=== PATIENT | male | born 1960 | race Caucasian/White ===

== ENCOUNTER 2020-09-27 18:33 | Emergency (ER) | payer SELFPAY ==
[~2020-09-27] VITALS: Ht 182.9 cm; Wt 90.7 kg
[2020-09-27] MEDS ORDERED: HYDCHL25 PO (18:45)
[2020-09-27] MEDS ORDERED: LISI10 PO (18:45)
[2020-09-27 20:22] LABS: BASOPHILS ABSOLUTE AUTO 0.04 K/mm3 (0.00-0.23); BASOPHILS PERCENT AUTO 0 % (0-2); EOSINOPHILS PERCENT AUTO 0 % (0-6); Hematocrit 36.2 % (37.0-53.0); Hemoglobin 11.9 g/dL (13.5-17.5); IMMATURE GRAN ABSOLUTE AUTO 0.24 K/mm3 (0.00-0.10); IMMATURE GRAN PERCENT AUTO 2 % (0-1); LYMPHOCYTES ABSOLUTE AUTO 1.35 K/mm3 (0.84-5.20); LYMPHOCYTES PERCENT AUTO 9 % (21-46); MONOCYTES PERCENT AUTO 9 % (4-13); Mean Corpuscular HGB 32.4 pg (26.0-34.0); Mean Corpuscular HGB Conc 32.9 g/dL (31.5-36.5); Mean Corpuscular Volume 99 fL (80-100); NEUTROPHILS ABSOLUTE AUTO 11.97 K/mm3 (1.96-9.15); NEUTROPHILS PERCENT AUTO 80 % (41-73); Platelet Count 121 K/mm3 (150-400); RDW Coefficient Variation 16.2 % (11.7-14.2); RDW Standard Deviation 57.2 fL (35.1-46.3); Red Blood Cell Count 3.67 M/mm3 (4.30-5.90)
[2020-09-27 20:39] LABS: Albumin, Blood 3.1 g/dL (3.4-5.0); Albumin/Globulin Ratio 0.8 (0.8-1.8); Bilirubin, Total 3.8 mg/dL (0.1-1.0); Bun/Creatinine Ratio 23.1 (12.0-20.0); Calcium, Blood 9.6 mg/dL (8.5-10.1); Creatinine, Blood 1.69 mg/dL (0.60-1.20); Globulin, Blood 3.7 g/dL (2.2-4.0); Total Protein, Blood 6.8 g/dL (6.4-8.2)
[2020-09-27] MEDS ORDERED: LOPE2C PO (22:18)
[2020-09-27] MEDS ORDERED: ONDA4ODT MM (22:18)
== END 2020-09-27 22:35 | disposition home or self-care (01) ==
LOC: ER 18:33
PROVIDERS: Emergency Medicine
DX: K75.9 Inflammatory liver disease, unspecified (principal); R19.7 Diarrhea, unspecified; F17.200 Nicotine dependence, unspecified, uncomplicated; Z79.899 Other long term (current) drug therapy
CPT/HCPCS: 74177; 80053; 83690; 85025; 93005; 93010; 96361; 96374-59; 96375; 99284-25; J2270; J2405; J7030; Q9967

== ENCOUNTER 2020-09-29 23:20 | Inpatient (IN) | payer OTHER ==
[~2020-09-29] VITALS: Ht 182.9 cm; Wt 94.3 kg
[~2020-09-29 23:20] MED LIST: HYDCHL25 PO; LISI10 PO; LOPE2C PO; ONDA4ODT MM
[2020-09-29 23:51] LABS: BASOPHILS ABSOLUTE AUTO 0.03 K/mm3 (0.00-0.23); BASOPHILS PERCENT AUTO 0 % (0-2); EOSINOPHILS ABSOLUTE AUTO 0.03 K/mm3 (0.00-0.68); EOSINOPHILS PERCENT AUTO 0 % (0-6); Hematocrit 34.7 % (37.0-53.0); Hemoglobin 11.7 g/dL (13.5-17.5); IMMATURE GRAN PERCENT AUTO 1 % (0-1); LYMPHOCYTES PERCENT AUTO 12 % (21-46); MONOCYTES PERCENT AUTO 12 % (4-13); Mean Corpuscular HGB 32.2 pg (26.0-34.0); Mean Corpuscular HGB Conc 33.7 g/dL (31.5-36.5); Mean Corpuscular Volume 96 fL (80-100); Mean Platelet Volume 11.1 fL (9.1-12.4); NEUTROPHILS ABSOLUTE AUTO 13.76 K/mm3 (1.96-9.15); NEUTROPHILS PERCENT AUTO 74 % (41-73); Platelet Count 152 K/mm3 (150-400); RDW Coefficient Variation 15.9 % (11.7-14.2); RDW Standard Deviation 55.7 fL (35.1-46.3); Red Blood Cell Count 3.63 M/mm3 (4.30-5.90); White Blood Cell Count 18.52 K/mm3 (4.00-11.30)
[2020-09-30 00:10] LABS: Albumin, Blood 2.8 g/dL (3.4-5.0); Albumin/Globulin Ratio 0.8 (0.8-1.8); Bilirubin, Total 1.9 mg/dL (0.1-1.0); Bun/Creatinine Ratio 49.7 (12.0-20.0); Calcium, Blood 8.8 mg/dL (8.5-10.1); Creatinine, Blood 1.57 mg/dL (0.60-1.20); Globulin, Blood 3.7 g/dL (2.2-4.0); Potassium, Blood 4.1 mmol/L (3.5-5.5); Total Protein, Blood 6.5 g/dL (6.4-8.2); Troponin I 0.089 ng/mL (0.000-0.040)
--- NOTE | 2020-09-30 00:15 | NUR ---
REPORT RECEIVED FROM PABLO LEAVE MANAGER AT 2345. PT TRANSFERRED TO MEDICAL FLOOR VIA BED, TRANSFERRED TO NEW BED WITH MINIMAL ASSIST. ALL BELONGINGS WITH PT. ON ASSESSMENT, PT REPORTS DIFFUSE LOWER ABD PAIN ON PALPATION, RADIATING TO LOW BACK. NO OTHER ACUTE CHANGES NOTED FROM SHIFT ASSESSMENT. PT APPEARS COMFORTABLE. ORIENTED TO ROOM/UNIT. BROUGHT WARM BLANKET. PT ATTEMPTING TO GO TO SLEEP NOW. NO FURTHER NEEDS ASSESSED AT THIS TIME. CALL LIGHT AND POSSESSIONS IN REACH, BED IN LOW POSITION WITH ALARMS ON. CONTINUE TO MONITOR.
[2020-09-30 01:31] LABS: Source, Urine Clean Catch
[2020-09-30 01:47] LABS: U Amphetamine Screen DETECTED; U Barbituate Screen Not Detected; U Benzodiazapine Screen Not Detected; U Buprenorphine Screen Not Detected; U Cannabinoids Screen Not Detected; U Cocaine Screen Not Detected; U Methadone Screen Not Detected; U Methamphetamine Screen DETECTED; U Opiates Screen DETECTED; U Oxycodone Screen Not Detected; U Phencyclidine Screen Not Detected; U Propoxyphene Screen Not Detected
[2020-09-30 01:50] LABS: Appearance, Urine Clear (Clear); Bacteria Rare /hpf; Bilirubin, Urine Neg (Neg); Blood, Urine 3+ (Neg); Color, Urine Yellow (P-Yellow); Glucose Qualitative, Urine Neg (Neg); Ketones, Urine 1+ (Neg); Leukocyte Esterase, Urine Neg (Neg); Nitrite, Urine Neg (Neg); Protein, Urine Neg (Neg); Specific Gravity, Urine 1.015 (1.003-1.022); Squamous Epithelial Cells Not Seen /hpf (Few); Urobilinogen, Urine 1+ (Normal); White Blood Cells, Urine Not Seen /hpf (0-5)
[2020-09-30 01:54] LABS: Creatine Kinase MB 78.3 ng/mL (0.0-3.6); Creatine Kinase MB Index 3.4 (0.0-4.0)
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
[2020-09-30 08:17] LABS: Hematocrit 29.6 % (37.0-53.0); Hemoglobin 9.7 g/dL (13.5-17.5); Mean Corpuscular HGB 32.1 pg (26.0-34.0); Mean Corpuscular HGB Conc 32.8 g/dL (31.5-36.5); Mean Corpuscular Volume 98 fL (80-100); Mean Platelet Volume 11.5 fL (9.1-12.4); Platelet Count 96 K/mm3 (150-400); RDW Coefficient Variation 16.3 % (11.7-14.2); RDW Standard Deviation 57.3 fL (35.1-46.3); Red Blood Cell Count 3.02 M/mm3 (4.30-5.90); White Blood Cell Count 11.99 K/mm3 (4.00-11.30)
[2020-09-30 08:33] LABS: Anion Gap 9 mmol/L (6-16); Blood Urea Nitrogen 68 mg/dL (8-24); Bun/Creatinine Ratio 56.2 (12.0-20.0); CO2, Blood 21 mmol/L (21-32); Calcium, Blood 8.2 mg/dL (8.5-10.1); Chloride, Blood 112 mmol/L (98-108); Creatinine, Blood 1.21 mg/dL (0.60-1.20); Glomerular Filtration Rate >60 (60-); Glucose, Blood 80 mg/dL (70-99); Potassium, Blood 3.7 mmol/L (3.5-5.5); Sodium, Blood 142 mmol/L (136-145)
--- NOTE | 2020-09-30 17:29 | NUR ---
SHIFT SUMMARY PT IS ALERT AND ORIENTEDx4, CALM AND COOPERATIVE. THIS AFTERNOON PT REPORTED THAT HE COULDN'T MOVE HIS LEGS, BUT PT WOULD BE SEEN MOVING HIS LEGS IN BED INDEPENDANTLY. PT WAS ABLE TO AMBULATE WITH 1 PERSON ASSIST AND WALKER TO RESTROOM THIS MORNING. PT HAD SMALL FORMED BM THIS MORNING, ISOLATION PRECAUTIONS D/C'D BY PROVIDER FOR R/O C-DIFF. PT ABLE TO USE URINAL INDEPENDANTLY. PT ALSO C/O PAIN 10/10, WITH VARYING LOCATION COMPLAINTS. PRN TYLENOL OFFERED MULTIPLE TIMES AND PT WOULD DECLINE. PT WOULD LATER EASILY FALL ASLEEP. VITALS HAVE BEEN STABLE. PT STATUS WAS CHANGED TO MEDICAL WITHOUT TELE TODAY.
--- NOTE | 2020-09-30 23:50 | NUR ---
UPDATE PT ALERT AND ORIENTED. VS STABLE. O2 SATS REMAIN ABOVE 90% ON RA. BP STABLE. PT COMPLAINS OF ACHES "ALL OVER" BUT DENIES A NEED FOR MEDICATION. PT ABLE TO REPOSITION HIMSELF IN BED. PT VOIDING USING THE URINAL AT BEDSIDE. REPORT GIVEN TO MEDICAL FLOOR RNSHAINA. PT TAKEN UP BY BED.
--- NOTE | 2020-10-01 00:15 | NUR ---
REPORT RECEIVED FROM PABLOTAMPING MACHINE OPERATOR AT 8809. PT TRANSFERRED TO MEDICAL FLOOR VIA BED, TRANSFERRED TO NEW BED C MINIMAL ASSIST. ALL BELONGINGS C PT. ON ASSESSMENT, PT REPORTS DIFFUSE LOWER ABD PAIN ON PALPATION, RADIATING TO LOW BACK. NO OTHER ACUTE CHANGES NOTED FROM SHIFT ASSESSMENT. PT APPEARS COMFORTABLE. ORIENTED TO ROOM/UNIT. BROUGHT WARM BLANKET. PT ATTEMPTING TO GO TO SLEEP NOW. NO FURTHER NEEDS ASSESSED AT THIS TIME. CALL LIGHT AND POSSESSIONS IN REACH, BED IN LOW POSITION WITH ALARMS ON. CONTINUE TO MONITOR.
[2020-10-01 01:47] LABS: Vancomycin, Trough 15.6 ug/mL (5.0-10.0)
[2020-10-01 01:50] LABS: Hematocrit 30.1 % (37.0-53.0); Hemoglobin 10.2 g/dL (13.5-17.5); Mean Corpuscular HGB 32.7 pg (26.0-34.0); Mean Corpuscular HGB Conc 33.9 g/dL (31.5-36.5); Mean Corpuscular Volume 97 fL (80-100); Mean Platelet Volume 11.3 fL (9.1-12.4); Platelet Count 101 K/mm3 (150-400); RDW Coefficient Variation 16.5 % (11.7-14.2); RDW Standard Deviation 56.8 fL (35.1-46.3); Red Blood Cell Count 3.12 M/mm3 (4.30-5.90); White Blood Cell Count 9.34 K/mm3 (4.00-11.30)
[2020-10-01 01:51] LABS: Alanine Aminotransfer (ALT/SGP 165 U/L (12-78); Albumin, Blood 2.2 g/dL (3.4-5.0); Albumin/Globulin Ratio 0.7 (0.8-1.8); Alk Phos 79 U/L (50-136); Anion Gap 6 mmol/L (6-16); Aspartate Aminotrans (AST/SGOT 178 U/L (12-37); Bilirubin, Total 1.6 mg/dL (0.1-1.0); Blood Urea Nitrogen 43 mg/dL (8-24); Bun/Creatinine Ratio 43.6 (12.0-20.0); CO2, Blood 24 mmol/L (21-32); Calcium, Blood 8.1 mg/dL (8.5-10.1); Chloride, Blood 111 mmol/L (98-108); Creatinine, Blood 0.99 mg/dL (0.60-1.20); Ferritin, Serum 960 ng/mL (26-388); Globulin, Blood 3.1 g/dL (2.2-4.0); Glomerular Filtration Rate >60 (60-); Glucose, Blood 99 mg/dL (70-99); Iron Serum 51 ug/dL (65-175); Percent Saturation 21.3 % (20.0-50.0); Potassium, Blood 3.8 mmol/L (3.5-5.5); Sodium, Blood 141 mmol/L (136-145); Total Iron Binding Capacity 239 ug/dL (250-450); Total Protein, Blood 5.3 g/dL (6.4-8.2)
[2020-10-01 02:30] LABS: BAND PERCENT MAN 8 % (0-8); BASOPHILS ABSOLUTE MAN 0.09 K/mm3 (0.00-0.23); BASOPHILS PERCENT MAN 1 % (0-2); EOSINOPHILS PERCENT MAN 0 % (0-6); LYMPHOCYTES ABSOLUTE MAN 1.68 K/mm3 (0.84-5.20); LYMPHOCYTES PERCENT MAN 18 % (21-46); MONOCYTES PERCENT MAN 14 % (4-13); NEUTROPHILS ABSOLUTE MAN 6.25 K/mm3 (1.96-9.15); SEG NEUTROPHILS PERCENT MAN 59 % (41-73); TOTAL CELLS COUNTED 100
--- NOTE | 2020-10-01 04:23 | NUR ---
CAR KNOCKER SUMMARY PT ASLEEP, IN NO ACUTE DISTRESS. VS REVIEWED, PT HYPERTENSIVE, OTHER VS WNL. HAS HAD NO ACUTE CHANGES IN CONDITION SINCE TRANSFER TO FLOOR. SLEPT T/O NIGHT. NO ACUTE NEEDS ASSESSED AT THIS TIME. CALL LIGHT, POSSESSIONS IN REACH, BED IN LOW POSITION WITH ALARMS ON. CONTINUE TO MONITOR, REPORT OFF TO DAY RN.
--- NOTE | 2020-10-01 19:10 | NUR ---
ASSUMED CARE REPORT RECEIVED FROM ESTEE FRANKEL. PT LYING IN BED. IN NO ACUTE DISTRESS. NO ACUTE NEEDS ASSESSED AT THIS TIME. IVF ONGOING. CALL LIGHT, POSSESSIONS IN REACH, BED IN LOW POSITION WITH ALARMS ON. CONTINUE TO MONITOR.
--- NOTE | 2020-10-01 19:26 | NUR ---
SHIFT SUMMARY: NO ACUTE CHANGES TO REPORT THIS SHIFT. PT A&O; CALM AND COOPERATIVE WITH CARE; SLEEPING T/O SHIFT. MEDICATED FOR PAIN PER EMAR. HOME DIURETIC & ANTI-HYPERTENSIVE RESTARTED THIS SHIFT. FLUIDS & IV ABX CONTINUING. REPORT GIVEN TO ONCOMING RN.
[2020-10-02 04:42] LABS: BASOPHILS ABSOLUTE AUTO 0.04 K/mm3 (0.00-0.23); BASOPHILS PERCENT AUTO 1 % (0-2); EOSINOPHILS ABSOLUTE AUTO 0.11 K/mm3 (0.00-0.68); EOSINOPHILS PERCENT AUTO 2 % (0-6); Hematocrit 32.7 % (37.0-53.0); Hemoglobin 10.7 g/dL (13.5-17.5); IMMATURE GRAN ABSOLUTE AUTO 0.12 K/mm3 (0.00-0.10); IMMATURE GRAN PERCENT AUTO 2 % (0-1); LYMPHOCYTES ABSOLUTE AUTO 1.47 K/mm3 (0.84-5.20); LYMPHOCYTES PERCENT AUTO 23 % (21-46); MONOCYTES ABSOLUTE AUTO 0.72 K/mm3 (0.16-1.47); MONOCYTES PERCENT AUTO 12 % (4-13); Mean Corpuscular HGB 32.4 pg (26.0-34.0); Mean Corpuscular HGB Conc 32.7 g/dL (31.5-36.5); Mean Corpuscular Volume 99 fL (80-100); Mean Platelet Volume 11.3 fL (9.1-12.4); NEUTROPHILS ABSOLUTE AUTO 3.82 K/mm3 (1.96-9.15); NEUTROPHILS PERCENT AUTO 61 % (41-73); Platelet Count 84 K/mm3 (150-400); RDW Coefficient Variation 15.8 % (11.7-14.2); RDW Standard Deviation 57.1 fL (35.1-46.3); White Blood Cell Count 6.28 K/mm3 (4.00-11.30)
--- NOTE | 2020-10-02 04:53 | NUR ---
STNA SUMMARY PT ASLEEP, IN NO ACUTE DISTRESS. HAS BEEN SLEEPING T/O MUCH OF THE NIGHT. VS REVIEWED, HYPERTENSIVE, OTHER VS WNL. BP'S STABILIZING. REFUSED OFFERED TYLENOL. NO ACUTE CHANGES IN CONDITION T/O NIGHT. CALL LIGHT, POSSESSIONS IN REACH, BED IN LOW POSITION WITH ALARMS ON. IVF ONGOING. CONTINUE TO MONITOR, REPORT OFF TO DAY RN.
[2020-10-02 05:09] LABS: Alanine Aminotransfer (ALT/SGP 144 U/L (12-78); Albumin/Globulin Ratio 0.6 (0.8-1.8); Alk Phos 78 U/L (50-136); Anion Gap 5 mmol/L (6-16); Aspartate Aminotrans (AST/SGOT 137 U/L (12-37); Bilirubin, Total 1.6 mg/dL (0.1-1.0); Blood Urea Nitrogen 24 mg/dL (8-24); Bun/Creatinine Ratio 30.2 (12.0-20.0); CO2, Blood 24 mmol/L (21-32); Calcium, Blood 8.1 mg/dL (8.5-10.1); Chloride, Blood 111 mmol/L (98-108); Globulin, Blood 3.1 g/dL (2.2-4.0); Glomerular Filtration Rate >60 (60-); Glucose, Blood 105 mg/dL (70-99); Magnesium, Blood 1.3 mg/dL (1.6-2.4); Phosphorus, Blood 1.8 mg/dL (2.5-4.9); Potassium, Blood 3.7 mmol/L (3.5-5.5); Sodium, Blood 140 mmol/L (136-145); Total Protein, Blood 5.1 g/dL (6.4-8.2)
--- NOTE | 2020-10-02 19:15 | NUR ---
ASSUMED CARE RECEIVED REPORT FROM ESTEE FRANKEL. PT ASLEEP, IN NO ACUTE DISTRESS. NO ACUTE NEEDS ASSESSED AT THIS TIME. CALL LIGHT, POSSESSIONS IN REACH, BED IN LOW POSITION. CONTINUE TO MONITOR.
--- NOTE | 2020-10-02 19:21 | NUR ---
SHIFT SUMMARY: NO ACUTE EVENTS TO REPORT THIS SHIFT. PT A&O; CALM AND COOPERATIVE WITH CARE. C/O ABD/LOW BACK PAIN; REFUSING TYLENOL; HEAT PAD IN PLACE. BOWEL CARE PROTOCOL ORDERED THIS SHIFT; PT STATES NO BM IN TWO DAYS. FLUIDS, ABX & ELECTROLYTE REPLACEMENT CONTINUING. REPORT GIVEN TO ONCOMING RN.
[2020-10-03 05:15] LABS: BASOPHILS ABSOLUTE AUTO 0.06 K/mm3 (0.00-0.23); BASOPHILS PERCENT AUTO 1 % (0-2); EOSINOPHILS ABSOLUTE AUTO 0.11 K/mm3 (0.00-0.68); EOSINOPHILS PERCENT AUTO 1 % (0-6); Hematocrit 36.2 % (37.0-53.0); Hemoglobin 12.3 g/dL (13.5-17.5); IMMATURE GRAN ABSOLUTE AUTO 0.26 K/mm3 (0.00-0.10); IMMATURE GRAN PERCENT AUTO 3 % (0-1); LYMPHOCYTES ABSOLUTE AUTO 1.38 K/mm3 (0.84-5.20); LYMPHOCYTES PERCENT AUTO 18 % (21-46); MONOCYTES ABSOLUTE AUTO 0.91 K/mm3 (0.16-1.47); MONOCYTES PERCENT AUTO 12 % (4-13); Mean Corpuscular HGB 32.7 pg (26.0-34.0); Mean Corpuscular Volume 96 fL (80-100); Mean Platelet Volume 11.2 fL (9.1-12.4); NEUTROPHILS ABSOLUTE AUTO 4.91 K/mm3 (1.96-9.15); NEUTROPHILS PERCENT AUTO 64 % (41-73); Platelet Count 94 K/mm3 (150-400); RDW Coefficient Variation 15.5 % (11.7-14.2); Red Blood Cell Count 3.76 M/mm3 (4.30-5.90); White Blood Cell Count 7.63 K/mm3 (4.00-11.30)
[2020-10-03 05:34] LABS: Alanine Aminotransfer (ALT/SGP 146 U/L (12-78); Albumin, Blood 2.2 g/dL (3.4-5.0); Albumin/Globulin Ratio 0.6 (0.8-1.8); Alk Phos 89 U/L (50-136); Anion Gap 8 mmol/L (6-16); Aspartate Aminotrans (AST/SGOT 116 U/L (12-37); Bilirubin, Total 1.7 mg/dL (0.1-1.0); Blood Urea Nitrogen 18 mg/dL (8-24); Bun/Creatinine Ratio 25.8 (12.0-20.0); C-REACTIVE PROTEIN, EXT RANGE <0.290 mg/dL (0.000-0.300); CO2, Blood 24 mmol/L (21-32); Calcium, Blood 8.4 mg/dL (8.5-10.1); Chloride, Blood 107 mmol/L (98-108); Globulin, Blood 3.7 g/dL (2.2-4.0); Glomerular Filtration Rate >60 (60-); Glucose, Blood 112 mg/dL (70-99); Magnesium, Blood 1.6 mg/dL (1.6-2.4); Phosphorus, Blood 3.3 mg/dL (2.5-4.9); Potassium, Blood 3.9 mmol/L (3.5-5.5); Sodium, Blood 139 mmol/L (136-145); Total Protein, Blood 5.9 g/dL (6.4-8.2)
[2020-10-03] MEDS ORDERED: LISI20 PO (09:49)
[2020-10-03] MEDS ORDERED: Acetaminophen325 M1 PO (09:51)
[2020-10-03] MEDS ORDERED: ASCO500 PO (09:52)
[2020-10-03] MEDS ORDERED: BISA10S PR (09:53)
[2020-10-03] MEDS ORDERED: DOCU100 PO (09:54)
[2020-10-03] MEDS ORDERED: FERSU300 PO (09:55)
[2020-10-03] MEDS ORDERED: ONDA4ODT MM (09:57)
[2020-10-03] MEDS ORDERED: PANT20 PO (09:58)
[2020-10-03] MEDS ORDERED: AMOCLA875 PO (09:59)
[2020-10-03] MEDS ORDERED: K-Phos Origina500 MG PO (10:00)
[2020-10-03] MEDS ORDERED: SENN187 PO (10:00)
[2020-10-03] MEDS ORDERED: VISBIOME 112.51 EACH PO (10:01)
--- NOTE | 2020-10-03 14:07 | NUR ---
PT DISCHARGED FROM THE UNIT. IVS REMOVED. DISCHARGE INSTRUCTIONS REVIEWED. MEDICATIONS FAXED TO PHARMACY. HE TOOK A SHOWER PRIOR TO DISCHARGE. GABRIEL ARRANGED TO TAKE PT TO PHARMACY AND TO [facility].
== END 2020-10-03 13:28 | disposition home or self-care (01) | DRG 871 ==
LOC: ER 23:20 → ICUE 09-30 01:15 → ERHOLD 09-30 01:15 → ICUE 09-30 05:30 → MEDS 09-30 23:56 → ENPENDDIS 10-03 10:39 → MEDS 10-03 13:28
PROVIDERS: Emergency Medicine; Family Medicine; Internal Medicine; ADMIT Internal Medicine
DX: A41.9 Sepsis, unspecified organism (principal); R65.21 Severe sepsis with septic shock; N17.9 Acute kidney failure, unspecified; Z20.822 Contact with and (suspected) exposure to COVID-19; F15.10 Other stimulant abuse, uncomplicated; R79.89 Other specified abnormal findings of blood chemistry; K74.60 Unspecified cirrhosis of liver; I10 Essential (primary) hypertension; F17.210 Nicotine dependence, cigarettes, uncomplicated
CPT/HCPCS: 36415; 71045; 80048; 80053; 80202; 81001; 82272; 82550; 82553; 82728; 83540; 83550; 83605; 83690; 83735; 84100; 84443; 84484; 85025; 85027; 85651; 86140; 86803; 87040; 93005; 93010; 93306; 96365; 96366; 96375; 99285-25; A9270; C9113; J0360; J1650; J2405; J2543; J3370; J3475; J7030; J7050; J7060; J7120; Q2038